=== PATIENT | male | born 1995 | race African-American/Black ===

== ENCOUNTER 2017-11-29 11:42 | Emergency (ER) | payer OTHER ==
[2017-11-29 13:24] VITALS: BP 103/78
--- NOTE | 2017-11-29 13:43 | ED ---
Lynnette Cuellar Julia, scribed for Obdulia Drummond MD on 11/29/17 at 1307 . Adult Trauma - HPI Summary HPI Summary: This patient is a 22 year old M presenting to [facility] with a chief complaint of pressure like headache worse on left since 11/27/17. The patient rates the pain 2/10 in severity. Patient hit head on cupboard, fell, and had sharp pain for 30 seconds before resolved. Patient felt bump on head the next day. Patient reports current double vision, ear aches, SOB, and occasional chest pain (anxiety related). Patient denies recent difficulty with daily tasks, sore throat, abdominal pain, hematuria, bloody stool, rashes, SI, HI, or hallucinations. Patient has history of asthma and anxiety. - History of Current Complaint Chief Complaint: EDHeadInjury Stated Complaint: HEADACHE Time Seen by Provider: 11/29/17 12:11 Hx Obtained From: Patient Onset/Duration: Still Present Onset of Pain: Immediate Pain Intensity: 2 Pain Scale Used: 0-10 Numeric Location: Head Character: Pressure Associated Signs & Symptoms: Positive: Other: - current double vision, ear aches , SOB, and occasional chest pain (anxiety related). - Additional Pertinent History Primary Care Physician: [id number] - Allergy/Home Medications Allergies/Adverse Reactions: Allergies Allergy/AdvReac Type Severity Reaction Status Date / Time No Known Allergies Allergy Verified 09/14/17 13:54 PMH/Surg Hx/FS Hx/Imm Hx Endocrine/Hematology History: Denies: Hx Diabetes Cardiovascular History: Denies: Hx Hypertension Respiratory History: Reports: Hx Asthma GI History: Reports: Hx Irritable Bowel - f Psychiatric History: Reports: Hx Anxiety - Surgical History Surgery Procedure, Year, and Place: appendectomy, 2017 Infectious Disease History: No Infectious Disease History: Denies: Traveled Outside the [place] in Last 30 Days - Family History Known Family History: Positive: Hypertension - mother, Diabetes - father - Social History Alcohol Use: Weekly Alcohol Amount: Last drink night - beer Substance Use Type: Reports: None Hx Tobacco Use: No Smoking Status (MU): Never Smoked Tobacco Review of Systems Positive: Ear Ache. Negative: Sore Throat Positive: Chest Pain - anxiety Positive: Shortness Of Breath Gastrointestinal: Negative - bloody stool Negative: Abdominal Pain Negative: hematuria Negative: Rash Neurological: Negative - difficulty with daily tasks, Other - double vision Positive: Headache Positive: Anxious, Other - negative - SI, HI, hallucinations All Other Systems Reviewed And Are Negative: No Physical Exam - Summary Physical Exam Summary: Appearance: Alert, conversive, nontoxic appearing Skin: Warm, dry, no mottling, no rashes, no contusions HEENT: EOMI, PERRL, moist mucous membranes Neck: No masses on the neck, supple Respiratory: Clear to auscultation, breath sounds present, no rales, no rhonchi , no wheezes Cardiovascular: RRR, pulses are symmetrical in both lower and upper extremities Abdomen: Soft, non-tender Bowel Sounds: Present Musculoskeletal: No CVA tenderness, no obvious deformity, moving all extremities in a grossly normal manner Neurological: A&Ox3, CN II-XII Intact, moving all extremities symmetrically Psychiatric: Normal affect and mood Triage Information Reviewed: Yes Vital Signs On Initial Exam: Initial Vitals Temp Pulse Resp BP Pulse Ox 97.8 F 86 16 132/72 97 11/29/17 11:46 11/29/17 11:46 11/29/17 11:46 11/29/17 11:46 11/29/17 11:46 Vital Signs Reviewed: Yes - Deandra Coma Scale Coma Scale Total: 15 Diagnostics - Vital Signs Vital Signs Temp Pulse Resp BP Pulse Ox 11/29/17 11:46 97.8 F 86 16 132/72 97 - Laboratory Lab Statement: Any lab studies that have been ordered have been reviewed, and results considered in the medical decision making process. Adult Trauma Course/Dx - Course Assessment/Plan: Patient hit head 36 hours ago. Patient is nontoxic. There is no ataxia. Patient is mildly concussed. There is no need for imaging. Patient is instructed to not participate in contact sports until cleared by primary care physician. Indications for follow up with concussion specialist was discussed. - Diagnoses Provider Diagnoses: Concussion Discharge - Discharge Plan Condition: Stable Disposition: HOME Patient Education Materials: Concussion (ED) Referrals: [facility] - Jose JEAN [Primary Care Provider] - Additional Instructions: Follow up with your doctor. tylenol and motrin for pain. return if worse or any new symptoms. No contact sports. if you develop chronic headaches, difficulty concentrating or memory problems, discuss with your doctor the need for follow up with a Concussion clinic. The documentation as recorded by the Lynnette gaona Julia accurately reflects the service I personally performed and the decisions made by me, Obdulia Drummond MD.
== END 2017-11-29 13:24 | disposition home or self-care (01) ==
LOC: ED 11:42
DX: S06.0X0A Concussion without loss of consciousness, initial encounter (principal); R06.02 Shortness of breath; H92.09 Otalgia, unspecified ear; R07.9 Chest pain, unspecified; R51 Headache; W18.00XA Striking against unspecified object with subsequent fall, initial encounter; Y92.9 Unspecified place or not applicable
CPT/HCPCS: 99282

== ENCOUNTER → 2018-07-09 09:05 | Emergency (ER) | payer OTHER ==
[~2018-07-09 09:05] MED LIST: Famotidine TAB* 20 MG PO ONE
--- NOTE | 2018-07-09 09:28 | ED ---
GI/ HPI - HPI Summary HPI Summary: 23-year-old male presents with right upper quadrant pain for the past day. He states he woke up with this pain. He had a burger and fries last night. He denies any nausea or vomiting. he denies any diarrhea or constipation. No fevers or dysuria. No flank pain. Has never had this pain before. Has had his appendix removed. She denies any shortness of breath or chest pain. He states that feels like pain is right underneath his ribs. He denies any family history of blood clots. He does not smoke. He has history of asthma. - History of Current Complaint Chief Complaint: EDChestWallPain Time Seen by Provider: 07/09/18 09:17 Stated Complaint: UPPER RT QUADRANT PAIN Pain Intensity: 6 - Additional Pertinent History Primary Care Physician: STEPHANIE - Allergy/Home Medications Allergies/Adverse Reactions: Allergies Allergy/AdvReac Type Severity Reaction Status Date / Time No Known Allergies Allergy Verified 07/09/18 09:29 PMH/Surg Hx/FS Hx/Imm Hx Endocrine/Hematology History: Denies: Hx Diabetes Cardiovascular History: Denies: Hx Hypertension Respiratory History: Reports: Hx Asthma GI History: Reports: Hx Irritable Bowel - f Psychiatric History: Reports: Hx Anxiety - Surgical History Surgery Procedure, Year, and Place: appendectomy, 2017 - Immunization History Immunizations Up to Date: Yes Infectious Disease History: No Infectious Disease History: Denies: Traveled Outside the [place] in Last 30 Days - Family History Known Family History: Positive: Hypertension - mother, Diabetes - father - Social History Alcohol Use: Weekly Alcohol Amount: Last drink night - beer Substance Use Type: Reports: None Hx Tobacco Use: No Smoking Status (MU): Never Smoked Tobacco Review of Systems Negative: Fever Negative: Chest Pain Negative: Shortness Of Breath Positive: Abdominal Pain. Negative: Vomiting, Diarrhea, Nausea All Other Systems Reviewed And Are Negative: Yes Physical Exam Triage Information Reviewed: Yes Vital Signs On Initial Exam: Initial Vitals Temp Pulse Resp BP Pulse Ox 97.8 F 73 18 124/82 97 07/09/18 09:09 07/09/18 09:09 07/09/18 09:09 07/09/18 09:09 07/09/18 09:09 Vital Signs Reviewed: Yes Appearance: Positive: Well-Appearing Skin: Positive: Warm, Dry Head/Face: Positive: Normal Head/Face Inspection Eyes: Positive: Normal, Conjunctiva Clear ENT: Positive: Pharynx normal Respiratory/Lung Sounds: Positive: Clear to Auscultation, Breath Sounds Present Cardiovascular: Positive: Normal, RRR Abdomen Description: Positive: Soft, Other: - tenderness RUQ. pos craft Bowel Sounds: Positive: Present Musculoskeletal: Positive: Normal Neurological: Positive: Normal Psychiatric: Positive: Normal Diagnostics - Vital Signs Vital Signs Temp Pulse Resp BP Pulse Ox 07/09/18 09:09 97.8 F 73 18 124/82 97 - Laboratory Result Diagrams: 07/09/18 09:27 07/09/18 09:27 Lab Statement: Any lab studies that have been ordered have been reviewed, and results considered in the medical decision making process. - Ultrasound No standard instances Ultrasound Interpretation: No Acute Changes Ultrasound Interpretation Completed By: Radiologist Re-Evaluation - Re-Evaluation First Eval Re-Evaluation Time: 10:48 Comment: discussed results with patient GIGU Course/Dx - Course Course Of Treatment: 23-year-old male presents with right upper quadrant pain for the past day. He states he woke up with this pain. He had a burger and fries last night. He denies any nausea or vomiting. he denies any diarrhea or constipation. No fevers or dysuria. No flank pain. Has never had this pain before. Has had his appendix removed. She denies any shortness of breath or chest pain. He states that feels like pain is right underneath his ribs. He denies any family history of blood clots. He does not smoke. He has history of asthma. labs wbc. normal crp. d-dimer neg. gallbladder u/s normal. will try treat with pepcid in case is gastritis. patient understand and agrees with plan. - Diagnoses Differential Diagnoses - Male: Cholecystitis, Cholelithiasis, Gastroenteritis ( Viral), Other - pe Provider Diagnoses: Abdominal pain Discharge - Sign-Out/Discharge Documenting (check all that apply): Patient Departure - Discharge Plan Condition: Good Disposition: HOME Prescriptions: Famotidine TAB* [Pepcid 20 MG TAB*] 20 mg PO DAILY #7 tab Patient Education Materials: Acute Abdominal Pain (ED) Referrals: [facility] - Richelle JEAN [Medical Doctor] - Additional Instructions: take pepcid daily Take Tylenol for pain as needed every 6 hours Follow up with richelle within 5 days if no improvement Return to ED if develop any new or worsening symptoms - Billing Disposition and Condition Condition: GOOD Disposition: Home
[2018-07-09 09:43] LABS: ABS Basophils 0 10^3/ul (0-0.2); ABS Eosinophils 0.1 10^3/ul (0-0.6); ABS Lymphocytes 2.5 10^3/ul (1.0-4.8); ABS Monocytes 0.5 10^3/ul (0-0.8); ABS Neutrophils 5.9 10^3/ul (1.5-7.7); ABS Nucleated RBC 0 10^3/ul; Eosinophil % 0.9 % (0-6); Hematocrit 42 % (42-52); Hemoglobin 14.1 g/dl (14.0-18.0); Lymphocyte % 27.1 % (25-47); Mean Corpuscular HGB Conc 34 g/dl (31-36); Mean Corpuscular Hemoglobin 28 pg (27-31); Mean Corpuscular Volume 83 fL (80-94); Mean Platelet Volume 7.4 um3 (7.4-10.4); Nucleated Red Blood Cells % 0; Platelet Count 255 10^3/ul (150-450); Red Blood Count 5.02 10^6/ul (4.00-5.40); Red Cell Distribution Width 14 % (10.5-15)
[2018-07-09 10:07] LABS: EGFR Non-African American 110.2 (>60)
--- NOTE | 2018-07-09 10:37 | RAD ---
INDICATION: Right upper quadrant pain COMPARISON: Gallbladder sonogram September 14, 2017 TECHNIQUE: Longitudinal and transverse scans of the right upper quadrant were obtained. Doppler interrogation of the hepatic and portal venous system was performed. FINDINGS: Liver: There is mild hepatomegaly with mild hepatic steatosis. There are no masses . The liver measures 18.7 cm in cephalocaudal dimension. Vessels: There is normal hepatic and portal venous flow. Bile ducts: There is no evidence of intrahepatic or extrahepatic ductal dilatation. The common duct measures 0.4 cm. Gallbladder: The sonographic appearance of the gallbladder is normal. There is no evidence of cholelithiasis, thickening of the gallbladder wall, or pericholecystic fluid. Pancreas: The visualized pancreas appears normal Right kidney: The right kidney is normal in size and echogenicity. There are no masses or calculi. There is no evidence of hydronephrosis. The right kidney measures 10.4 x 4.4 x 5.4 cm. IVC and aorta: The aorta and superior vena cava appear normal. Fluid: There is no ascites. Other: None. IMPRESSION: Normal gallbladder. Mild hepatomegaly with hepatic steatosis.
[2018-07-09 11:13] VITALS: BP 125/83
== END | disposition home or self-care (01) ==
LOC: ED 09:05
DX: R10.11 Right upper quadrant pain (principal); K76.0 Fatty (change of) liver, not elsewhere classified; J45.909 Unspecified asthma, uncomplicated
CPT/HCPCS: 36415; 76705; 80053; 83690; 85025; 85379; 86140; 99282; A9270-GY

== ENCOUNTER 2018-08-11 20:19 | Emergency (ER) | payer OTHER ==
[2018-08-11] MEDS ORDERED: Amoxicillin/Clavulanate TAB* 875 MG PO ONE (22:22)
--- NOTE | 2018-08-11 22:22 | ED ---
Bite Injury/Animal - HPI Summary HPI Summary: Patient complains of cat Bite to dorsal surface of right hand at the base of right thumb today. Denies any pain or symptoms. Ankle history is none. Vaccinations up-to-date - History of Current Complaint Chief Complaint: EDAnimalBite Stated Complaint: CAT BITE Time Seen by Provider: 08/11/18 21:26 Hx Obtained From: Patient Onset of Injury: Happened hours ago Type of Bite: Animal Has Animal Been Immunized?: Unknown Severity Initially: Mild Severity Currently: Mild Pain Intensity: 1 Pain Scale Used: 0-10 Numeric Character: Abrasion/Laceration Associated Signs And Symptoms: Positive: Negative - Allergies/Home Medications Allergies/Adverse Reactions: Allergies Allergy/AdvReac Type Severity Reaction Status Date / Time No Known Allergies Allergy Verified 08/11/18 20:23 PMH/Surg Hx/FS Hx/Imm Hx Endocrine/Hematology History: Denies: Hx Diabetes Cardiovascular History: Denies: Hx Hypertension Respiratory History: Reports: Hx Asthma GI History: Reports: Hx Irritable Bowel - f Psychiatric History: Reports: Hx Anxiety - Surgical History Surgery Procedure, Year, and Place: appendectomy, 2017 - Immunization History Immunizations Up to Date: Yes Infectious Disease History: No Infectious Disease History: Denies: Traveled Outside the [place] in Last 30 Days - Family History Known Family History: Positive: Hypertension - mother, Diabetes - father - Social History Alcohol Use: Weekly Alcohol Amount: Last drink night - beer Substance Use Type: Reports: None Hx Tobacco Use: No Smoking Status (MU): Never Smoked Tobacco Review of Systems Constitutional: Negative Eyes: Negative ENT: Negative Cardiovascular: Negative Respiratory: Negative Gastrointestinal: Negative Genitourinary: Negative Musculoskeletal: Negative Skin: Other Neurological: Negative Psychological: Normal All Other Systems Reviewed And Are Negative: Yes Physical Exam - Summary Physical Exam Summary: Surface abrasion of dorsal surface of right hand base of right thumb. No puncture wounds. No erythema, ecchymosis, deformity, swelling. PMS intact. Normal function of right hand. Triage Information Reviewed: Yes Vital Signs On Initial Exam: Initial Vitals Temp Pulse Resp BP Pulse Ox 97.6 F 83 16 137/78 96 08/11/18 20:21 08/11/18 20:21 08/11/18 20:21 08/11/18 20:21 08/11/18 20:21 Vital Signs Reviewed: Yes Appearance: Positive: Well-Appearing Skin: Positive: Warm Head/Face: Positive: Normal Head/Face Inspection Eyes: Positive: Normal Neck: Positive: Supple Respiratory/Lung Sounds: Positive: Clear to Auscultation Cardiovascular: Positive: Normal Abdomen Description: Positive: Nontender Musculoskeletal: Positive: Normal Neurological: Positive: Normal Psychiatric: Positive: Normal AVPU Assessment: Alert - Deandra Coma Scale Best Eye Response: 4 - Spontaneous Best Motor Response: 6 - Obeys Commands Best Verbal Response: 5 - Oriented Coma Scale Total: 15 Diagnostics - Vital Signs Vital Signs Temp Pulse Resp BP Pulse Ox 08/11/18 20:21 97.6 F 83 16 137/78 96 - Laboratory Lab Statement: Any lab studies that have been ordered have been reviewed, and results considered in the medical decision making process. Bite Injury Course/Dx - Course Course Of Treatment: Patient complains of cat Bite to dorsal surface of right hand at the base of right thumb today. Denies any pain or symptoms. Ankle history is none. Vaccinations up-to-date. Physical exam:Surface abrasion of dorsal surface of right hand base of right thumb. No puncture wounds. No erythema, ecchymosis, deformity, swelling. PMS intact. Normal function of right hand. Vital signs within normal limits. Patient started on Augmentin here in the ED. Rx for same - Diagnoses Provider Diagnosis: Cat bite Discharge - Sign-Out/Discharge Documenting (check all that apply): Patient Departure - Discharge Plan Condition: Stable Disposition: HOME Prescriptions: Amoxicillin/Clavulanate TAB* [Augmentin TAB 875*] 875 mg PO BID 7 Days #14 tab Patient Education Materials: Animal Bite (ED) Referrals: No Primary Care Phys,NOPCP [Primary Care Provider] - Additional Instructions: Taking antibiotics as directed. Follow-up with primary care. Return to the ED for any new or worsening symptoms - Billing Disposition and Condition Condition: STABLE Disposition: Home
[2018-08-11 22:40] VITALS: BP 130/70
== END 2018-08-11 22:39 | disposition home or self-care (01) ==
LOC: ED 20:19
DX: S61.451A Open bite of right hand, initial encounter (principal); W55.01XA Bitten by cat, initial encounter; Y92.9 Unspecified place or not applicable
CPT/HCPCS: 99282; A9270-GY

== ENCOUNTER 2018-11-27 00:17 | Emergency (ER) | payer OTHER ==
[2018-11-27] MEDS ORDERED: Lidocaine 2% VISCOUS* 15 ML UDC PO ONE (00:58)
[2018-11-27] MEDS ORDERED: Al Hydrox/Mg Hydrox/Simet LIQ* 30 ML UDC PO ONE (00:58)
[2018-11-27] MEDS ORDERED: Pantoprazole TAB * 40 MG TAB PO ONE (01:45)
--- NOTE | 2018-11-27 01:50 | ED ---
GI/ HPI - HPI Summary HPI Summary: 23-year-old male presents with burning epigastric and chest pain today. States he's has this intermittent every time after he eats. He states he knows it is acid reflex it is just not improving. He started Pepcid and pepto bismol. Denies any vomiting. Denies any cough. Has history of asthma. He states he feels like he get chest tightness and shortness of breath from the burning. He admits to loose stools. No blood in his stools. Has no medical history. No family cardiac history. is not a smoker. Symptoms improve when he takes the Pepcid. no cough. - History of Current Complaint Chief Complaint: EDGeneral Time Seen by Provider: 11/27/18 00:48 Stated Complaint: SOB Pain Intensity: 4 - Additional Pertinent History Primary Care Physician: STEPHANIE - Allergy/Home Medications Allergies/Adverse Reactions: Allergies Allergy/AdvReac Type Severity Reaction Status Date / Time shellfish derived Allergy Severe Anaphylatic Verified 11/27/18 00:23 Shock PMH/Surg Hx/FS Hx/Imm Hx Endocrine/Hematology History: Denies: Hx Diabetes Cardiovascular History: Denies: Hx Hypertension Respiratory History: Reports: Hx Asthma GI History: Reports: Hx Irritable Bowel - f Psychiatric History: Reports: Hx Anxiety - Surgical History Surgery Procedure, Year, and Place: appendectomy, 2017 Infectious Disease History: No Infectious Disease History: Denies: Traveled Outside the [place] in Last 30 Days - Family History Known Family History: Positive: Hypertension - mother, Diabetes - father - Social History Alcohol Use: Weekly Alcohol Amount: Last drink night - beer Substance Use Type: Reports: None Hx Tobacco Use: No Smoking Status (MU): Never Smoked Tobacco Review of Systems Negative: Fever Positive: Chest Pain - burning Positive: Shortness Of Breath. Negative: Cough Positive: Abdominal Pain. Negative: Vomiting, Diarrhea, Nausea All Other Systems Reviewed And Are Negative: Yes Physical Exam Triage Information Reviewed: Yes Vital Signs On Initial Exam: Initial Vitals Temp Pulse Resp BP Pulse Ox 96.8 F 86 12 136/81 96 11/27/18 00:19 11/27/18 00:19 11/27/18 00:19 11/27/18 00:19 11/27/18 00:19 Vital Signs Reviewed: Yes Appearance: Positive: Well-Appearing Skin: Positive: Warm, Dry Head/Face: Positive: Normal Head/Face Inspection Eyes: Positive: Normal, Conjunctiva Clear ENT: Positive: Pharynx normal Respiratory/Lung Sounds: Positive: Clear to Auscultation, Breath Sounds Present Cardiovascular: Positive: Normal, RRR Abdomen Description: Positive: Nontender, Soft Bowel Sounds: Positive: Present Musculoskeletal: Positive: Normal Neurological: Positive: Normal Psychiatric: Positive: Normal Diagnostics - Vital Signs Vital Signs Temp Pulse Resp BP Pulse Ox 11/27/18 00:19 96.8 F 86 12 136/81 96 - Laboratory Lab Statement: Any lab studies that have been ordered have been reviewed, and results considered in the medical decision making process. Re-Evaluation - Re-Evaluation First Eval Re-Evaluation Time: 01:51 Change: Improved Comment: feeling better GIGU Course/Dx - Course Course Of Treatment: 23-year-old male presents with burning epigastric and chest pain today. States he's has this intermittent every time after he eats. He states he knows it is acid reflex it is just not improving. He started Pepcid and pepto bismol. Denies any vomiting. Denies any cough. Has history of asthma. He states he feels like he get chest tightness and shortness of breath from the burning. He admits to loose stools. No blood in his stools. Has no medical history. No family cardiac history. is not a smoker. Symptoms improve when he takes the Pepcid. On exam lungs clear to auscultation. Abdomen soft nontender. gave GI cocktail and chest burning improved. has no risk factors for anything cardiac and symptoms all sound like acid reflux so did not go cardiac work up. We will prescribe omeprazole for acid reflux. Told no improvement to his follow-up with GI. Patient understands agrees with plan. - Diagnoses Differential Diagnoses - Male: Esophagitis/Gastritis, Gastritis, Gerd Provider Diagnoses: Acid reflux Discharge - Sign-Out/Discharge Documenting (check all that apply): Patient Departure - Discharge Plan Condition: Good Disposition: HOME Prescriptions: Omeprazole CAP (NF) [Prilosec CAP* 20 MG] 20 mg PO DAILY #14 Patient Education Materials: Gastroesophageal Reflux Disease (ED) Referrals: Ever Huddleston MD [Medical Doctor] - Additional Instructions: Take omeprazole once a day Avoid acidic foods Elevated head of bed Stay upright for at least 30 mins after eating Follow up with GI if no improvement Return to ED if develop any new or worsening symptoms - Billing Disposition and Condition Condition: GOOD Disposition: Home
[2018-11-27 02:00] VITALS: BP 130/70
== END 2018-11-27 01:59 | disposition home or self-care (01) ==
LOC: ED 00:17
DX: K21.9 Gastro-esophageal reflux disease without esophagitis (principal); R07.9 Chest pain, unspecified; R10.13 Epigastric pain; R06.02 Shortness of breath; R10.9 Unspecified abdominal pain
CPT/HCPCS: 99282; A9270-GY

== ENCOUNTER 2019-02-17 09:46 | Emergency (ER) | payer BC ==
--- NOTE | 2019-02-17 10:00 | ED ---
Upper Extremity Pain - HPI Summary HPI Summary: Pt is a 23 y/o M presenting to the ED with a chief complaint of upper extremity pain. He states he was carrying a five gallon bucket of ice at work, and fell, landing on his L forearm. He reports a tingling/pain in his forearm and wrist. - History of Current Complaint Chief Complaint: EDExtremityUpper Stated Complaint: PAIN ON LEFT SIDE PER PT Time Seen by Provider: 02/17/19 09:54 Hx Obtained From: Patient Mechanism Of Injury: Fall From A Standing Position Onset/Duration: Started Hours Ago Timing: Constant, Lasting Hours Severity Initially: Mild Severity Currently: Mild Pain Location: Forearm, Wrist Character: Aching - and tingling Aggravating Factor(s): Movement Alleviating Factor(s): Nothing Associated Signs & Symptoms: Positive: Numbness/Tingling - Allergies/Home Medications Allergies/Adverse Reactions: Allergies Allergy/AdvReac Type Severity Reaction Status Date / Time shellfish derived Allergy Severe Anaphylatic Verified 02/17/19 09:52 Shock PMH/Surg Hx/FS Hx/Imm Hx Previously Healthy: Yes Endocrine/Hematology History: Denies: Hx Diabetes Cardiovascular History: Denies: Hx Hypertension Respiratory History: Reports: Hx Asthma GI History: Reports: Hx Irritable Bowel - f Psychiatric History: Reports: Hx Anxiety - Surgical History Surgery Procedure, Year, and Place: appendectomy, 2017 Infectious Disease History: No Infectious Disease History: Denies: Traveled Outside the [place] in Last 30 Days - Family History Known Family History: Positive: Hypertension - mother, Diabetes - father - Social History Alcohol Use: Rare Alcohol Amount: Last drink night - beer Hx Substance Use: No Substance Use Type: Reports: None Hx Tobacco Use: No Smoking Status (MU): Never Smoked Tobacco Review of Systems Positive: Myalgia Neurological: Other - tingling in L forearnm All Other Systems Reviewed And Are Negative: Yes Physical Exam - Summary Physical Exam Summary: VITAL SIGNS: Reviewed. GENERAL: Patient is a well-developed and nourished male who is lying comfortable in the stretcher. Patient is not in any acute respiratory distress. HEAD AND FACE: No signs of trauma. No ecchymosis, hematomas or skull depressions. No sinus tenderness. EYES: PERRLA, EOMI x 2, No injected conjunctiva, no nystagmus. EARS: Hearing grossly intact. Ear canals and tympanic membranes are within normal limits. MOUTH: Oropharynx within normal limits. NECK: Supple, trachea is midline, no adenopathy, no JVD, no carotid bruit, no c- spine tenderness, neck with full ROM. CHEST: Symmetric, no tenderness at palpation LUNGS: Clear to auscultation bilaterally. No wheezing or crackles. CVS: Regular rate and rhythm, S1 and S2 present, no murmurs or gallops appreciated. ABDOMEN: Soft, non-tender. No signs of distention. No rebound no guarding, and no masses palpated. Bowel sounds are normal. EXTREMITIES: FROM in all major joints, no edema, no cyanosis or clubbing. NEURO: Alert and oriented x 3. No acute neurological deficits. Speech is normal and follows commands. SKIN: Dry and warm Triage Information Reviewed: Yes Vital Signs On Initial Exam: Initial Vitals Temp Pulse Resp BP Pulse Ox 96.0 F 84 16 150/85 96 02/17/19 09:48 02/17/19 09:48 02/17/19 09:48 02/17/19 09:48 02/17/19 09:48 Vital Signs Reviewed: Yes Diagnostics - Vital Signs Vital Signs Temp Pulse Resp BP Pulse Ox 02/17/19 09:48 96.0 F 84 16 150/85 96 - Laboratory Lab Statement: Any lab studies that have been ordered have been reviewed, and results considered in the medical decision making process. Course/Dx - Course Assessment/Plan: Patient is a 22-year-old male who presents to the emergency department with a chief complaint of left forearm and wrist pain. Upon examination, the patient has full range of motion, there are no deformities, and there is good sensation as well as good strength. Therefore, I do not believe that the patient needs any imaging at this point. The patient agrees, and he will be discharged home with follow-up with PCP. Patient is hemodynamically stable alert oriented 3. - Diagnoses Provider Diagnoses: Contusion of left arm Discharge - Sign-Out/Discharge Documenting (check all that apply): Patient Departure Patient Received Moderate/Deep Sedation with Procedure: No - Discharge Plan Condition: Stable Disposition: HOME Referrals: [facility] [Outside] Additional Instructions: RETURN TO THE ED FOR ANY WORSENING OR NEW SYMPTOMS. - Billing Disposition and Condition Condition: STABLE Disposition: Home - Attestation Statements Document Initiated by Scribe: Yes Documenting Scribe: Teodora Wilkerson Provider For Whom Patriciaibe is Documenting (Include Credential): Alhaji Laughlin MD. Scribe Attestation: Teodora Cuellar, bryed for Alhaji Laughlin MD. on 02/17/19 at 1746. Scribe Documentation Reviewed: Yes Provider Attestation: The documentation as recorded by the scribe, Teodora Wilkerson accurately reflects the service I personally performed and the decisions made by , Alhaji Laughlin MD. Status of Scribe Document: Viewed
[2019-02-17 10:09] VITALS: BP 119/77
== END 2019-02-17 10:07 | disposition home or self-care (01) ==
LOC: ED 09:46
DX: S50.12XA Contusion of left forearm, initial encounter (principal); W01.0XXA Fall on same level from slipping, tripping and stumbling without subsequent striking against object, initial encounter; Y99.0 Civilian activity done for income or pay; J45.909 Unspecified asthma, uncomplicated; K58.9 Irritable bowel syndrome, unspecified
CPT/HCPCS: 99281

== ENCOUNTER 2020-01-30 14:51 | Emergency (ER) | payer BC, MEDICAID ==
[2020-01-30 15:31] LABS: Influenza A Molecular Negative (Negative); Influenza B Molecular Negative (Negative)
--- NOTE | 2020-01-30 16:06 | ED ---
Respiratory - HPI Summary HPI Summary: 24 y/o male presented to [facility] after 1 day of mild SOB, sore throat, mild dry cough, and diarrhea. Pt denies fever, vomiting, and nasal congestion. Pt has had no known contact with anyone with COVID-19. Pt was in [place] January 21-, and after flying from [place] to [facility] on January [address] to return to [place]. Pt has asthma and drinks alcohol occasionally. Medications reviewed. Allergies noted. Home Medications Medication Instructions Recorded Confirmed Type Amoxicillin/Clavulanate TAB* 875 mg PO BID 7 Days #14 tab 08/11/18 Rx [Augmentin TAB 875*] Omeprazole CAP (NF) [Prilosec CAP* 20 mg PO DAILY #14 11/27/18 Rx 20 MG] - History of Current Complaint Chief Complaint: EDUpperRespComplaint Stated Complaint: COUGHING/SOB PER PT Time Seen by Provider: 01/30/20 15:18 Hx Obtained From: Patient Onset/Duration: Lasting Days, Still Present Current Severity: Moderate Pain Intensity: 4 Character: Cough (Nonproductive) Associated Signs and Symptoms: SOB - Allergy/Home Medications Allergies/Adverse Reactions: Allergies Allergy/AdvReac Type Severity Reaction Status Date / Time shellfish derived Allergy Severe Anaphylatic Verified 01/30/20 15:05 Shock Home Medications: Home Medications Amoxicillin/Clavulanate TAB* [Augmentin TAB 875*] 875 mg PO BID 7 Days #14 tab 08/11/18 [Rx] Omeprazole CAP (NF) [Prilosec CAP* 20 MG] 20 mg PO DAILY #14 11/27/18 [Rx ] Albuterol HFA INHALER* [Ventolin HFA Inhaler*] 1 - 2 puff INH Q4H PRN #1 mdi [Rx] PMH/Surg Hx/FS Hx/Imm Hx Endocrine/Hematology History: Denies: Hx Diabetes Cardiovascular History: Denies: Hx Hypertension Respiratory History: Reports: Hx Asthma GI History: Reports: Hx Irritable Bowel - f Psychiatric History: Reports: Hx Anxiety - Surgical History Surgery Procedure, Year, and Place: appendectomy, 2017 Infectious Disease History: No Infectious Disease History: Denies: Traveled Outside the [place] in Last 30 Days - Family History Known Family History: Positive: Hypertension - mother, Diabetes - father - Social History Alcohol Use: Rare Alcohol Amount: Last drink night - beer Hx Substance Use: No Substance Use Type: Reports: None Hx Tobacco Use: No Smoking Status (MU): Never Smoked Tobacco Review of Systems Negative: Fever Positive: Sore Throat, Other - negative nasal congestion Positive: Shortness Of Breath, Cough - dry Positive: Diarrhea. Negative: Vomiting All Other Systems Reviewed And Are Negative: Yes Physical Exam - Summary Physical Exam Summary: Constitutional: Well-developed, Well-nourished, Alert. (-) Distressed Skin: Warm, Dry HENT: Normocephalic; Atraumatic Eyes: Conjunctiva normal Neck: Musculoskeletal ROM normal neck. (-) JVD, (-) Stridor, (-) Tracheal deviation Cardio: Rhythm regular, rate normal, Heart sounds normal; Intact distal pulses; Radial pulses are 2+ and symmetric. (-) Murmur Pulmonary/Chest wall: Effort normal. (-) Respiratory distress, (-) Wheezes, (-) Rales Abd: Soft, (-) tenderness, (-) Distension, (-) Guarding, (-) Rebound Musculoskeletal: (-) Edema Lymph: (-) Cervical adenopathy Neuro: Alert, Oriented x3 Psych: Mood and affect Normal Triage Information Reviewed: Yes Vital Signs On Initial Exam: Initial Vitals Temp Pulse Resp BP Pulse Ox 98.4 F 81 14 130/76 98 01/30/20 15:01 01/30/20 15:01 01/30/20 15:01 01/30/20 15:01 01/30/20 15:01 Vital Signs Reviewed: Yes Procedures - Sedation Patient Received Moderate/Deep Sedation with Procedure: No Diagnostics - Vital Signs Vital Signs Temp Pulse Resp BP Pulse Ox 01/30/20 15:01 98.4 F 81 14 130/76 98 - Laboratory Lab Results: Lab Results 01/30/20 Range/Units 15:05 Influenza A (Rapid) Negative (Negative) Influenza B (Rapid) Negative (Negative) Lab Statement: Any lab studies that have been ordered have been reviewed, and results considered in the medical decision making process. - Radiology cxr Radiology Interpretation Completed By: Radiologist Summary of Radiographic Findings: IMPRESSION: No radiographic evidence for acute cardiopulmonary abnormality on this. portable chest x-ray. This report was reviewed by the ED physician. Disposition - Course Course Of Treatment: Patient is here with URI type symptoms. Patient did travel from [place] and to be sober [facility] in the past 10 days. Patient is overall well-appearing. Patient negative chest x-ray and rapid influenza. Patient had a rapid strep that was negative. However, patient is well-appearing and does not meet testing requirements for Covid. Patient was told to go home and quarantine until he is symptom free for 14 days - Diagnoses Provider Diagnoses: Cough, SOB (shortness of breath) Discharge ED - Sign-Out/Discharge Documenting (check all that apply): Patient Departure - dc - Discharge Plan Condition: Stable Disposition: HOME Prescriptions: Albuterol HFA INHALER* [Ventolin HFA Inhaler*] 1 - 2 puff INH Q4H PRN #1 mdi PRN Reason: Wheezing Patient Education Materials: Acute Cough (ED) [facility]errals: [facility] [Outside] Additional Instructions: You were seen in the emergency department for coronavirus rule out. You did not meet criteria for testing, however we still recommend that you self quarantine. This means she should stay in your house. You should wear a mask you're outside of your personal room. We encourage handwashing as well as limited contact with other people including the elderly and the immunocompromised. If any studies were not completed at the time of discharge you will be called with the relevant results. Please follow up with your primary care doctor in next 2-3 days and return to emergency department for trouble breathing, worsening or concerning symptoms. It was a pleasure taking care of you today. - Billing Disposition and Condition Condition: STABLE Disposition: Home - Attestation Statements Document Initiated by Nash: Yes Documenting Scribe: Tani Del Castillo Provider For Whom Nash is Documenting (Include Credential): Maverick Rojas MD Scribe Attestation: Tani Cuellar, scribed for Maverick Rojas MD on 01/30/20 at 2046. Scribe Documentation Reviewed: Yes Provider Attestation: The documentation as recorded by the Tani gaona accurately reflects the service I personally performed and the decisions made by me, Maverick Rojas MD Status of Scribe Document: Viewed
[2020-01-30 18:14] VITALS: BP 125/81
[2020-01-31 11:16] LABS: Rapid Strep Molecular Negative (Negative)
== END 2020-01-30 18:12 | disposition home or self-care (01) ==
LOC: ED 14:51
DX: R06.02 Shortness of breath (principal); R05 Cough; J45.909 Unspecified asthma, uncomplicated; K58.9 Irritable bowel syndrome, unspecified; F41.9 Anxiety disorder, unspecified; Z90.89 Acquired absence of other organs; Z79.899 Other long term (current) drug therapy
CPT/HCPCS: 71045; 87651; 99283